=== PATIENT | female | born 1990 | race Caucasian/White ===

== ENCOUNTER 2018-11-10 05:52 | Inpatient (IN) ==
[2018-11-10] MEDS ORDERED: NALBUPHINE HCL 10 MG/ML AMPUL IV PRN (06:26)
[2018-11-10] MEDS ORDERED: RINGER'S SOLUTION,LACTATED 1,000 ML IV ONE (06:26)
[2018-11-10] MEDS ORDERED: RINGER'S SOLUTION,LACTATED 1,000 ML IV PRN (06:26)
[2018-11-10] MEDS ORDERED: OXYTOCIN/DEXTROSE 5%-WATER 30 UNITS/500 ML BAG IV ONE ×2 (06:26→15:14)
[2018-11-10 06:40] LABS: Cocaine Ur Negative (NEGATIVE); Urine Barbiturate Negative (NEGATIVE); Urine Benzodiazepines Negative (NEGATIVE); Urine Opiates Negative (NEGATIVE); Urine PCP Negative (NEGATIVE); Urine THC Negative (NEGATIVE)
--- NOTE | 2018-11-10 09:08 | HP ---
Chief Complaint - Chief Complaint Date of Service: 11/10/18 Time of Service: 09:03 Chief Complaint: Labor induction History of Present Illness: The patient is a 28 year old @ 39w 0d who presents for an elective induction of labor. She denies vaginal bleeding or loss of fluid. Reports ctx. Fetus is active. 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 No significant past medical history Surgical History: Surgical History (Updated 04/28/18 @ 11:42 by Cecy Yousif CMA) History of wisdom tooth extraction Onset Date: Unknown Hx laparoscopic cholecystectomy Onset Date: ~05/24/17 Soni Family History: Family History (Updated 04/28/18 @ 11:44 by Cecy Yousif CMA) Mother Hyperlipemia Cataract Cholelithiases Father Kidney disease Disease of pancreas Social History: Preferred Language [place] Smoking Status Former smoker Abuse History No History of abuse Psych History Hx of Anxiety (Last Updated 11/06/18 @ 14:09 by Nelly Piña MD) No Social History Section defined Review Of Systems (GEN) - Review of Systems Generalized/Overall Review: Present: No Symptoms Reported Misc: All systems neg except as marked Immunizations: IMMUNIZATION HX Immunizations Up to Date No: unknown History of Influenza Vaccine No Hx Pneumococcal Vaccination No Allergies/Adverse Reactions: Allergies Allergy/AdvReac Type Severity Reaction Status Date / Time latex AdvReac Mild RASH Verified 11/10/18 06:23 Home Medications: HOME MEDICATIONS vitamin,calcium,rwvtxpuk-mgbk-vcren acid tablet 1 tab PO DAILY 04/29/18 [Last Taken Unknown] Exam - Exam Vital Signs: Vital Signs - Last Taken Temp 36.9 C 11/10/18 06:32 Pulse 95 11/10/18 06:32 Resp 18 11/10/18 06:32 BP 122/88 11/10/18 06:32 Constitutional: Present: Alert, Oriented x3, Cooperative, No distress Cardiovascular/Chest: Present: regular rate, rhythm, no murmur Abdomen: Present: soft, nontender, nondistended /Rectal: Present: Other - 3/50/-2 AROM for clear fluid Extremity: Present: non-tender, no calf tenderness Skin Exam: Present: normal color, warm/dry, no cyanosis Appearance: Present: appropriate appearance Eye contact: Present: cooperative Thoughts: Present: normal thought pattern Diagnostic Studies: Laboratory Results Negative (NEGATIVE) 11/10/18 06:20 Negative (NEGATIVE) 11/10/18 06:20 Ur Phencyclidine Scrn Negative (NEGATIVE) 11/10/18 06:20 Urine Amphetamine Negative (NEGATIVE) 11/10/18 06:20 U Benzodiazepines Scrn Negative (NEGATIVE) 11/10/18 06:20 Negative (NEGATIVE) 11/10/18 06:20 Negative (NEGATIVE) 11/10/18 06:20 Blood Type O Positive 11/10/18 06:40 Antibody Screen Negative 11/10/18 06:40 Assessment/Plan - Narrative Narrative: 28 year old @ 39w 0d here for an elective IOL Pitocin started AROM for clear fluid GBS negative: prophylaxis not indicated
[2018-11-10] MEDS ORDERED: ONDANSETRON HCL/PF 2 MG/ML VIAL IV PRN (10:15)
[2018-11-10] MEDS ORDERED: BUPIVACAINE HCL/0.9 % NACL/PF 250 ML EP PRN (10:15)
[2018-11-10] MEDS ORDERED: NALOXONE HCL 1 MG/1 ML SYRG IV PRN (10:15)
[2018-11-10] MEDS ORDERED: fentaNYL CITRATE/PF 50 MCG/ML AMPUL IT SCH (10:15)
[2018-11-10] MEDS ORDERED: LIDOCAINE HCL 50 ML VIAL ONE (10:48)
--- NOTE | 2018-11-10 11:28 | ANES ---
Post Anesthesia Assessment - Vital Signs Vitals: Last Vital Signs Temp 36.6 C 11/10/18 11:05 Pulse 92 11/10/18 11:05 Resp 18 11/10/18 11:05 BP 127/85 11/10/18 11:05 Pulse Ox 99 11/10/18 11:05 Airway Patency: Normal - Mental Status Level Of Consciousness: Awake - Pain Level Pain Score: 0 - N/V Assessment Nausea/Vomiting Presence: None Dehydration:: No
--- NOTE | 2018-11-10 11:28 | ANES ---
Anesthesia Pre Procedure Eval Vitals/Labs: Last Vital Signs Temp 36.6 C 11/10/18 11:05 Pulse 92 11/10/18 11:05 Resp 18 11/10/18 11:05 BP 127/85 11/10/18 11:05 Pulse Ox 99 11/10/18 11:05 HOME MEDICATIONS vitamin,calcium,iogaxgdn-ilij-rpuab acid tablet 1 tab PO DAILY 04/29/18 [Last Taken Unknown] Allergies/Adverse Reactions: Allergies Allergy/AdvReac Type Severity Reaction Status Date / Time latex AdvReac Mild RASH Verified 11/10/18 06:23 - Planned Procedure Planned Procedure: ELECTIVE INDUCTION Medication List Reviewed:: Yes Allergies Verified: Yes Medical History (Updated 11/10/18 @ 09:08 by Nelly Piña MD) Asthma due to seasonal allergies 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 No significant past medical history Surgical History (Updated 11/10/18 @ 09:08 by Nelly Piña MD) History of wisdom tooth extraction Onset Date: Unknown Hx laparoscopic cholecystectomy Onset Date: ~05/24/17 Soni Family History (Updated 04/28/18 @ 11:44 by Cecy Yousif CMA) Mother Hyperlipemia Cataract Cholelithiases Father Kidney disease Disease of pancreas - Family Anesthesia History Family History:: no untoward family reactions to anesthesia - Airway/Neck/Teeth Teeth Condition: intact Neck Exam: full range of motion Mallampatti Score: 2 Thyromental (T-M) distance: > 6 cm Mandibulo Hyoid distance: > 3 cm - Respiratory Respiratory Physical: lungs clear Smoking Status: Never smoker Sleep Apnea currently treated: No Sleep Apnea by current assessment: No - Cardiovascular Tolerate Activity: Good Heart Sounds: S1 & S2, Regular - Anesthesia Assessment and Plan ASA Class: PS, II, E Anesthesia Type Plan: Epidural Planned difficult intubation/equipment available: No
--- NOTE | 2018-11-10 11:29 | ANES ---
Post Anesthesia Discharge - Transfer of Care Transfer of Care handoff given to nurse: Yes - Anesthesia Post Op Note Anesthesia Post Op Note: Care transferred to OB RN
--- NOTE | 2018-11-10 11:31 | ANES ---
Anesthesia Procedure Note Procedure Note: ANESTHESIA PROCEDURE NOTE Date of Procedure: 11/10/2018 Time of procedure: 1035. Performed by: Ben Paez CRNA Business Test Analyst: None. Preprocedure diagnosis: Active labor. Post procedure diagnosis: Same. Procedure: Insertion of labor epidural. Indications: The patient is a 28-year-old multigravid female in active labor requesting labor epidural for pain management. Findings: See below. Details of the procedure: The patient was placed in a sitting position. Back was prepped with DuraPrep. Patient was then draped in a sterile fashion. Lidocaine 1% was infiltrated to the skin and subcutaneous tissues at the level of the L3 4 interspace. The epidural space was identified using a 18-gauge Tuohy needle with wiek-ca-[id number] technique. 20 mcg fentanyl was given intrathecally using a 27 ga. spinal needle. Epidural catheter was inserted without difficulty. Negative test dose was elicited using 5 mL of 1.5% preservative-free lidocaine plus epinephrine 1 200,000. The epidural catheter was then taped and secured in place. EBL: Minimal. Fluids: N/A. Specimen: N/A. Post procedure condition: The patient tolerated the procedure well. No complications were noted. Thank you for this consultation. [place] CRNA
[2018-11-10] MEDS ORDERED: ceFAZolin SODIUM 2 GM in DEXTROSE 5 % IN WATER 50 ML IV ONE ×2 (14:49)
[2018-11-10] MEDS ORDERED: diphenhydrAMINE HCL 25 MG CAPSULE PO PRN (15:14)
[2018-11-10] MEDS ORDERED: HYDROCORTISONE 30 APPL TUBE TP PRN (15:14)
[2018-11-10] MEDS ORDERED: SENNOSIDES 8.6 MG TABLET PO PRN (15:14)
[2018-11-10] MEDS ORDERED: HYDROcodone/ACETAMINOPHEN 1 EACH TABLET PO PRN (15:14)
[2018-11-10] MEDS ORDERED: GLYCERIN/WITCH HAZEL LEAF 40 APPL BOX TP PRN (15:14)
[2018-11-10] MEDS ORDERED: BISACODYL 10 MG SUPP.RECT RC PRN (15:14)
[2018-11-10] MEDS ORDERED: BENZOCAINE/MENTHOL 81 SPRAY CAN TP PRN (15:14)
--- NOTE | 2018-11-10 15:18 | OR ---
Operative Report - Dictated Report Narrative: Date of delivery: 11/10/2018 Time of delivery: 1442 Gender: female weight: 4149 grams APGARS: 9/9 Procedure: Description of the procedure: The patient is a 28 year old @ 39w 0d who presented for an elective IOL with pitocin and AROM. She progressed to complete dilation. She delivered a viable female infant in the direct OA position. The anterior shoulders delivered without difficulty as did the rest of the infant. The cord was clamped and cut. The placenta was delivered by expression. The cord and some membranes avulsed. The rest of the placenta was in the vagina and I manually extracted the placenta from the vagina. A foul odor was noted and thus I ordered 2 grams of Ancef were ordered for endometritis prophylaxis. Long trailing membranes were noted and removed carefully to ensure complete removal. A first degree vaginal laceration was noted which was repaired in the standard surgical fashion. Hemostasis was adequate. EBL: 100 mL Lacerations: 1st degree vaginal Complications: none History for MU Definition: * The number of deliveries resulting in a live the patient experienced prior to current hospitalization * The previous delivery of live twins or any live multiple gestation is considered one live event. *If primagravida or nulliparous is documented select zero for the number of previous live births. Live Events: 1
[2018-11-10] MEDS: DOCUSATE SODIUM 100 MG CAPSULE PO SCH (21:09)
[2018-11-10] MEDS: HYDROcodone/ACETAMINOPHEN 1 EACH TABLET PO PRN (21:09)
[2018-11-10] MEDS: IBUPROFEN 800 MG TABLET PO PRN (23:28)
[2018-11-11] MEDS: HYDROcodone/ACETAMINOPHEN 1 EACH TABLET PO PRN ×3 (00:11→20:07)
[2018-11-11] MEDS: DOCUSATE SODIUM 100 MG CAPSULE PO SCH ×3 (06:49→20:07)
--- NOTE | 2018-11-11 08:57 | PN ---
Subjective - Date and Time Seen Date: 11/11/18 Time: 08:55 Subjective Narrative: Pt reports pain on her right leg. She feels that she bumped into something prior to delivery. Objective Objective Narrative: See vital signs - Review of Systems Generalized/Overall Review: Reports: No Symptoms Reported Misc: All systems neg except as marked - Vitals Vitals: Last Vital Signs Temp 36.9 C 11/11/18 06:56 Pulse 82 11/11/18 06:56 Resp 16 11/11/18 06:56 BP 139/97 H 11/11/18 06:56 Pulse Ox 99 11/11/18 06:56 - Exam Constitutional: Present: Alert, Oriented x3, Cooperative, No distress Abdomen: Present: soft, nontender, nondistended - fundus is firm Extremity: Present: non-tender, no calf tenderness Skin Exam: Present: normal color, warm/dry, no cyanosis Appearance: Present: appropriate appearance Eye contact: Present: cooperative Thoughts: Present: normal thought pattern Cauti Physician Documentation - Urinary Catheter Management Urethral (Nix) Urethral Indwelling: No Date of Insertion: 11/10/18 Time of Insertion: 11:45 Date of Removal: 11/10/18 Time of Removal: 14:37 Assessment/Plan Plan Narrative: PPD 1 s/p Doing well Discharge tomorrow
[2018-11-11] MEDS: IBUPROFEN 800 MG TABLET PO PRN (22:50)
[2018-11-12] MEDS: HYDROcodone/ACETAMINOPHEN 1 EACH TABLET PO PRN ×2 (07:41→13:05)
[2018-11-12] MEDS: DOCUSATE SODIUM 100 MG CAPSULE PO SCH ×2 (07:41→14:03)
--- NOTE | 2018-11-12 10:10 | PN ---
Subjective - Date and Time Seen Date: 11/12/18 Time: 10:09 Subjective Narrative: Pt reports pain on her right leg. She feels that she bumped into something prior to delivery. Objective Objective Narrative: See vital signs - Review of Systems Generalized/Overall Review: Reports: No Symptoms Reported Misc: All systems neg except as marked - Vitals Vitals: Last Vital Signs Temp 36.1 C 11/12/18 07:30 Pulse 83 11/12/18 07:30 Resp 20 11/12/18 07:30 BP 121/79 11/12/18 07:30 Pulse Ox 99 11/12/18 07:30 - Exam Constitutional: Present: Alert, Oriented x3, Cooperative, No distress Abdomen: Present: soft, nontender, nondistended Extremity: Present: non-tender, no calf tenderness Skin Exam: Present: normal color, warm/dry, no cyanosis Appearance: Present: appropriate appearance Eye contact: Present: cooperative Thoughts: Present: normal thought pattern Cauti Physician Documentation - Urinary Catheter Management Urethral (Nix) Urethral Indwelling: No Date of Insertion: 11/10/18 Time of Insertion: 11:45 Date of Removal: 11/10/18 Time of Removal: 14:37 Assessment/Plan Plan Narrative: PPD 2 s/p Doing well Discharge today
[2018-11-12] MEDS: IBUPROFEN 800 MG TABLET PO PRN (13:06)
[2018-11-12 17:42] VITALS: BP 127/76
== END 2018-11-12 16:35 | disposition home or self-care (01) | DRG 805 ==
LOC: OB 05:52
PROVIDERS: ADMIT Obstetrics & Gynecology; ATTEND Obstetrics & Gynecology
CPT/HCPCS: 59025; 80307; 86850; 88307